=== PATIENT | female | born 1940 | race Caucasian/White ===

== ENCOUNTER → 2017-05-20 | Outpatient (CLI) | payer MEDICARE, OTHER | LOC: EDBD 14:31 → COL.LAB 14:31 | DX: Z01.89 Encounter for other specified special examinations (principal) ==

== ENCOUNTER → 2017-05-22 | Outpatient (CLI) | payer MEDICARE, OTHER ==
[2017-05-22 15:18] LABS: BASO % 0.6 % (0.0-2.0); EOS # 0.2 (0.0-0.7); EOS % 3.4 % (0-4.0); GRAN % 64.2 % (42.2-75.2); HEMATOCRIT 44.5 % (37.0-47.0); HEMOGLOBIN 14.7 g/dl (12.5-16.0); LYMPH # 1.6 (1.2-3.4); MEAN CELL VOLUME 91 fl (80.0-100.0); MEAN CORPUSCULAR HEMOGLOBIN 30 pg (27.0-31.0); MEAN CORPUSCULAR HGB CONC 33 g/dl (33.0-37.0); MEAN PLATELET VOLUME 10.5 fl (7.4-10.4); MONO # 0.4 (0.1-0.6); MONO % 6.6 % (1.7-9.3); PLATELET COUNT 235 K/mm3 (130-400); RED BLOOD COUNT 4.89 M/mm3 (4.10-5.30); REDCELL DISTRIBUTION WIDTH-CV 11.9 % (11.5-14.5); WHITE BLOOD COUNT 6.2 K/mm3 (4.8-10.8)
[2017-05-22 15:32] LABS: ALBUMIN 4.3 gm/dL (3.5-5.0); BILIRUBIN,TOTAL 0.9 mg/dL (0.0-1.0); CALCIUM 9.2 mg/dL (8.4-10.2); CREATININE, serum 0.98 mg/dL (0.52-1.25); POTASSIUM 3.9 mmol/L (3.4-5.0); TOTAL PROTEIN 7.4 gm/dL (6.4-8.2)
[2017-05-22 16:02] LABS: THYROID STIMULATING HORMONE 1.9 uIU/mL (0.465-4.680)
== END ==
LOC: COL.LAB 10:26
PROVIDERS: Family Medicine
DX: I10 Essential (primary) hypertension (principal)

== ENCOUNTER → 2017-09-16 | Outpatient (CLI) | payer MEDICARE, OTHER ==
[2017-09-16 16:07] LABS: ALBUMIN 4.4 gm/dL (3.5-5.0); BILIRUBIN,TOTAL 0.8 mg/dL (0.0-1.0); CALCIUM 9.5 mg/dL (8.4-10.2); CREATININE, serum 1.13 mg/dL (0.52-1.25); POTASSIUM 3.7 mmol/L (3.4-5.0); TOTAL PROTEIN 7.2 gm/dL (6.4-8.2)
== END ==
LOC: COL.LAB 14:45
PROVIDERS: Family Medicine
DX: I10 Essential (primary) hypertension (principal); R74.0 Nonspecific elevation of levels of transaminase and lactic acid dehydrogenase [LDH]

== ENCOUNTER → 2017-12-11 | Outpatient (CLI) | payer MEDICARE ==
[2017-12-11 11:33] LABS: ALBUMIN 4.1 gm/dL (3.5-5.0); BILIRUBIN,TOTAL 0.9 mg/dL (0.0-1.0); CHOLESTEROL RISK RATIO 2.8; CREATININE, serum 1.07 mg/dL (0.52-1.25); POTASSIUM 3.9 mmol/L (3.4-5.0); TOTAL PROTEIN 7.6 gm/dL (6.4-8.2)
== END ==
LOC: COL.LAB 10:52
PROVIDERS: Family Medicine
DX: E78.5 Hyperlipidemia, unspecified (principal); R74.0 Nonspecific elevation of levels of transaminase and lactic acid dehydrogenase [LDH]

== ENCOUNTER 2019-02-27 20:49 | Emergency (ER) | payer MEDICARE ==
[~2019-02-27] VITALS: Ht 160 cm; Wt 79.5 kg
[2019-02-27 20:54] VITALS: TEMP 97.3
[2019-02-27] MEDS ORDERED: HCTZ 25MG TAB25 MG PO (21:40)
[2019-02-27] MEDS ORDERED: LIPITOR 10MG10 MG PO (21:40)
[2019-02-27] MEDS ORDERED: FLONASE NASAL S16 GM NS (21:41)
[2019-02-27] MEDS ORDERED: ZYRTEC 10MG10 MG PO (21:41)
[2019-02-27] MEDS ORDERED: DOXYCYCLINE HY100 MG PO (21:45)
[2019-02-27 22:03] VITALS: BP 149/73; PULSE 60
== END 2019-02-27 22:03 | disposition home or self-care (01) ==
LOC: COL.ER 20:49
DX: S80.812A Abrasion, left lower leg, initial encounter (principal); L03.116 Cellulitis of left lower limb; I10 Essential (primary) hypertension; E78.5 Hyperlipidemia, unspecified; Z88.2 Allergy status to sulfonamides; Z88.1 Allergy status to other antibiotic agents

== ENCOUNTER 2021-10-08 12:28 | Emergency (ER) | payer MEDICARE, OTHER ==
[~2021-10-08] VITALS: Ht 162.6 cm; Wt 84.1 kg
[~2021-10-08 12:28] MED LIST: DOXYCYCLINE HY100 MG PO; FLONASE NASAL S16 GM NS; HCTZ 25MG TAB25 MG PO; LIPITOR 10MG10 MG PO; ZYRTEC 10MG10 MG PO
[2021-10-08 12:29] VITALS: TEMP 98.4
[2021-10-08] MEDS ORDERED: NORCO 325 MG-51 TAB PO (14:30)
[2021-10-08 14:52] VITALS: BP 143/69; PULSE 66
== END 2021-10-08 15:16 | disposition home or self-care (01) ==
LOC: COL.ER 12:28
DX: M25.552 Pain in left hip (principal); I10 Essential (primary) hypertension; E78.5 Hyperlipidemia, unspecified

== ENCOUNTER 2022-10-31 07:40 | Inpatient (IN) | payer MEDICARE, OTHER ==
[~2022-10-31] VITALS: Ht 165.1 cm; Wt 80.4 kg
[~2022-10-31 07:40] MED LIST changes: +NORCO 325 MG-51 TAB PO
[2022-10-31 08:22] LABS: HEMATOCRIT 42.7 % (37.0-47.0); HEMOGLOBIN 14.2 g/dl (12.5-16.0); MEAN CELL VOLUME 92 fl (80.0-100.0); MEAN CORPUSCULAR HEMOGLOBIN 31 pg (27-31); MEAN CORPUSCULAR HGB CONC 33 g/dl (33.0-37.0); PLATELET COUNT 193 K/mm3 (130-400); RED BLOOD COUNT 4.63 M/mm3 (4.10-5.30); REDCELL DISTRIBUTION WIDTH-CV 12.3 % (11.5-14.5)
[2022-10-31 08:30] LABS: COLLECTION METHOD CLEAN CATCH
[2022-10-31 08:36] LABS: ALBUMIN 3.7 gm/dL (3.4-4.8); BILIRUBIN,TOTAL 1.2 mg/dL (0.2-1.2); CREATININE, serum 1.26 mg/dL (0.57-1.11); POTASSIUM 3.5 mmol/L (3.5-4.5); TOTAL PROTEIN 7.4 gm/dL (6.2-8.1)
[2022-10-31 08:41] LABS: TROPONIN-I 0.013 ng/mL (0.00-0.033)
[2022-10-31 08:41] LABS: GRANULAR CAST >12 /lpf (0); MUCOUS Present (NOT PRESENT); SQUAMOUS EPITHELIAL 0-2 /hpf (0-10); URINE BACTERIA Rare /hpf (NONE SEEN)
[2022-10-31 08:46] LABS: PH 5.5 (5.0-8.5); URINE APPEARANCE Hazy (CLEAR/HAZY); URINE BLOOD 2+ (NEGATIVE); URINE COLOR Yellow (YELLOW); URINE GLUCOSE Negative (NEGATIVE); URINE KETONE Negative (NEGATIVE); URINE NITRATE Negative (NEGATIVE); URINE PROTEIN(semi-quant) 3+ (NEGATIVE)
[2022-10-31 09:01] LABS: BAND 28 % (0-10); BASOPHIL 1 % (0-2); LYMPHOCYTE 4 % (20.0-51.0); NEUTROPHILS 57 % (42.0-75.2); PLATELET ESTIMATE NORMAL (NORMAL)
[2022-10-31 09:33] VITALS: BP 134/63; PULSE 88; TEMP 101.2
[2022-10-31] MEDS ORDERED: PAXLOVID 150-11 EACH PO (10:46)
[2022-10-31] MEDS ORDERED: NEURONTIN300 MG/CAP PO (10:46)
[2022-10-31] MEDS ORDERED: VASOTEC 10M10 MG/TAB PO (10:47)
[2022-10-31] MEDS ORDERED: K-TAB10 PO (10:47)
[2022-10-31] MEDS ORDERED: SINGULAIR 110 MG/TAB PO (10:48)
[2022-10-31] MEDS ORDERED: FOSAMAX 70MG TA70 MG PO (10:49)
[2022-10-31] MEDS ORDERED: TYLENOL 500MG500 MG PO (10:50)
[2022-10-31 11:10] VITALS: BP 132/55; PULSE 88; TEMP 100.5
[2022-10-31 15:14] VITALS: BP 120/50; PULSE 80; TEMP 98.3
--- NOTE | 2022-10-31 16:51 | NUR ---
Nursing staff notified this nurse that the patient took out IV and O2 and set off the bed alarm and was in the bathroom. Nursing staff assisted with getting the patient back into the bed. New IV site started and OM placed back on the patient. Patient reoriented to location, room and call light. Call light within reach. Bed alarm on. Fall precautions in place.
--- NOTE | 2022-10-31 17:00 | NUR ---
Nursing staff requesting telesitter, telesitter informed the nursing staff that they are short staffed and cannot take any new patients and that it is unsafe for a person to monitor 24 patients. tunnel heading supervisor notifed and Sara Director notified.
[2022-10-31 20:57] VITALS: BP 136/67; PULSE 81; TEMP 98.7
[2022-10-31 23:06] VITALS: BP 144/82; PULSE 75; TEMP 98.3
[2022-11-01 03:02] VITALS: BP 147/59; PULSE 78; TEMP 98.7
[2022-11-01 06:15] VITALS: BP 134/67; PULSE 135; TEMP 99
[2022-11-01 07:09] LABS: CALCIUM 8.8 mg/dL (8.4-10.2); CREATININE, serum 1.21 mg/dL (0.57-1.11); POTASSIUM 3.7 mmol/L (3.5-4.5)
[2022-11-01 07:15] LABS: BASO % 0.3 % (0.0-2.0); GRAN # 7.9 K/mm3 (1.4-6.5); GRAN % 84.8 % (42.2-75.2); HEMATOCRIT 39.6 % (37.0-47.0); HEMOGLOBIN 13.5 g/dl (12.5-16.0); LYMPH % 10.2 % (20.0-51.0); MEAN CELL VOLUME 91 fl (80.0-100.0); MEAN CORPUSCULAR HEMOGLOBIN 31 pg (27-31); MEAN CORPUSCULAR HGB CONC 34 g/dl (33.0-37.0); MEAN PLATELET VOLUME 10.7 fl (7.4-10.4); MONO # 0.4 K/mm3 (0.1-0.6); MONO % 4.3 % (1.7-9.3); PLATELET COUNT 189 K/mm3 (130-400); RED BLOOD COUNT 4.37 M/mm3 (4.10-5.30); REDCELL DISTRIBUTION WIDTH-CV 12.2 % (11.5-14.5)
--- NOTE | 2022-11-01 08:00 | NUR ---
Patient sitting up in bed, A&Ox3 with intermittent confusion. VSS 5L OM O2, no reported SOB. IV CDI. fluids infusing. Suction and yonker at the bedside. Covid precautions in place. Telesitter in the room. Call light within reach. Bed alarm on
[2022-11-01 10:53] LABS: MAGNESIUM 2.2 mg/dL (1.6-2.6)
[2022-11-01 11:14] LABS: TSH w REFLEX 0.781 uIU/mL (0.350-4.940)
[2022-11-01 12:00] VITALS: BP 107/40; PULSE 77; TEMP 99.5
--- NOTE | 2022-11-01 13:42 | NUR ---
NADYA called daughter Eliza at [phone] to complete intake. Daughter states that patient lives with her in [facility]. Patient does not utilize DME, is independent with ADL's, and does not utilize HH services at this time. PCP is Dr. Hill, and pharmacy is [facility]. Daughter states that she has been appointed as DPOA/HC. Plan is to return back to home in [place] upon DC. NADYA will continue to follow. DC plan: home with daughter
[2022-11-01 16:00] VITALS: BP 142/74; PULSE 78; TEMP 98.5
[2022-11-01 19:55] VITALS: BP 124/60; PULSE 72; TEMP 98.6
[2022-11-02 00:20] VITALS: BP 124/65; PULSE 58; TEMP 98.6
--- NOTE | 2022-11-02 02:00 | NUR ---
Patient care, medication administration and nursing documentation occurred during a Daylight Savings Time Change. 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 PT STATED HER IV WAS HURTING. NEW IV STARTED TO THE RIGHT FOREARM. FALL PRECAUTIONS IN PLACE. BED ALARM ON. CALL LIGHT WITHIN REACH.
[2022-11-02 03:47] VITALS: BP 117/62; PULSE 60; TEMP 98.8
--- NOTE | 2022-11-02 06:23 | NUR ---
Patient care, medication administration and nursing documentation occurred during a Daylight Savings Time Change.
[2022-11-02 06:50] LABS: BASO % 0.2 % (0.0-2.0); HEMATOCRIT 37.8 % (37.0-47.0); HEMOGLOBIN 12.4 g/dl (12.5-16.0); LYMPH # 1.1 K/mm3 (1.2-3.4); LYMPH % 10.1 % (20.0-51.0); MEAN CELL VOLUME 93 fl (80.0-100.0); MEAN CORPUSCULAR HEMOGLOBIN 31 pg (27-31); MEAN CORPUSCULAR HGB CONC 33 g/dl (33.0-37.0); MEAN PLATELET VOLUME 10.8 fl (7.4-10.4); MONO # 0.5 K/mm3 (0.1-0.6); MONO % 4.2 % (1.7-9.3); PLATELET COUNT 226 K/mm3 (130-400); RED BLOOD COUNT 4.07 M/mm3 (4.10-5.30); REDCELL DISTRIBUTION WIDTH-CV 12.4 % (11.5-14.5)
[2022-11-02 07:02] LABS: CALCIUM 8.3 mg/dL (8.4-10.2); CREATININE, serum 1.16 mg/dL (0.57-1.11); POTASSIUM 3.8 mmol/L (3.5-4.5)
[2022-11-02 07:27] VITALS: BP 125/87; PULSE 63; TEMP 98
--- NOTE | 2022-11-02 09:00 | NUR ---
Pt awake and laying in bed. Morning medications administered per eMAR. Shift assessment completed. VSS. Pt remains on 2L per oxymask. Telemetry remains on. IV fluids infusing in R forearm, patent no edema or redness. INT in L forearm patent, no edema or redness. Tele sitter remains in room. No further request at this time. Call light within reach. Bed alarm on.
--- NOTE | 2022-11-02 11:16 | NUR ---
Athletics Teacher rounds: Patient accepted visit. Patient goes by Mily. 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 Patient used visit with Athletics Teacher for life review. Athletics Teacher prayed for Patient. Athletics Teacher left a New Testament with Irma in room.
[2022-11-02 12:20] VITALS: BP 136/66; PULSE 57; TEMP 97.6
[2022-11-02 15:54] VITALS: BP 140/75; PULSE 57; TEMP 97.7
[2022-11-02 19:43] VITALS: BP 143/65; PULSE 64; TEMP 98.7
[2022-11-03] VITALS (7 sets, daily range): BP systolic 114–175; BP diastolic 53–90; PULSE 51–63; TEMP 98–98.6
[2022-11-03] LABS: ARTERIAL BLD GAS O2 SATURATION 97.9 % (92-100); ARTERIAL BLD GAS TCO2 CT 23.3; ARTERIAL BLOOD GAS BASE EXCESS -2.6 (-2-2); ARTERIAL BLOOD GAS HCO3 22.1 meq/L (22-26); ARTERIAL BLOOD GAS PCO2 38.3 mmHg (35-45); ARTERIAL BLOOD GAS PO2 110.9 mmHg (80-100); ARTERIAL BLOOD GAS pH 7.38 (7.35-7.45)
--- NOTE | 2022-11-03 05:00 | NUR ---
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 PT HAD A PRETTY ROUGH NIGHT. RECEIVED A CALL FROM THE TELE-SITTER THAT PT REMOVED HER O2. I WENT TO PT'S ROOM TO REPLACE HER O2. PT REFUSED TO PUT IT ON. I TOLD PT THAT I WOULD CHECK HER O2 LEVELS AND IF ABOVE 90%, WE COULD LEAVE HER O2 OFF FOR A WHILE. PT'S O2 @93% ON ROOM AIR. PT HAPPEN TO SEE MY SCISSORS AND STARTED OBSESSING OVER THEM. "GIVE ME THOSE SCISSOR, I WANT THOSE SCISSOR!" I ASKED PT WHY SHE NEEDED SCISSOR? PT STATED, "SO I CAN CUT YOUR THROAT!" PT BECAME MORE AND MORE COMBATIVE, GRABBING AT THE SCISSORS, DIGGING HER NAILS INTO MY HANDS, ETC. STAFF CALLED TO BEDSIDE FOR HELP. SOFT MITS PLACED BECAUSE PT WAS HITTING, DIGGING HER NAILS INTO THE OTHER STAFF AND KICKING. HOSPITALIST CALLED AND CAME TO BEDSIDE. ATIVAN ORDERED AND GIVEN, TWICE. SEROQUEL ORDERED BUT PT REFUSED. PT FINALLY CALMED DOWN, BUT HAVE A COUPLE MORE MOMENTS OF COMBATIVENESS DURING THE SHIFT; FALL PRECAUTIONS IN PLACE. BED ALARM ON. CALL LIGHT WITHIN REACH.
[2022-11-03 07:03] LABS: CALCIUM 8.1 mg/dL (8.4-10.2); CREATININE, serum 1.03 mg/dL (0.57-1.11); POTASSIUM 3.8 mmol/L (3.5-4.5)
[2022-11-03 07:10] LABS: BASO % 0.1 % (0.0-2.0); GRAN # 8.7 K/mm3 (1.4-6.5); GRAN % 82.8 % (42.2-75.2); HEMATOCRIT 37.2 % (37.0-47.0); HEMOGLOBIN 12.5 g/dl (12.5-16.0); LYMPH % 9.4 % (20.0-51.0); MEAN CELL VOLUME 91 fl (80.0-100.0); MEAN CORPUSCULAR HEMOGLOBIN 31 pg (27-31); MEAN CORPUSCULAR HGB CONC 34 g/dl (33.0-37.0); MEAN PLATELET VOLUME 10.8 fl (7.4-10.4); MONO # 0.7 K/mm3 (0.1-0.6); MONO % 6.6 % (1.7-9.3); PLATELET COUNT 210 K/mm3 (130-400); RED BLOOD COUNT 4.07 M/mm3 (4.10-5.30); REDCELL DISTRIBUTION WIDTH-CV 12.1 % (11.5-14.5)
--- NOTE | 2022-11-03 08:00 | NUR ---
Patient laying in bed resting. Easily awakened with verbal commad. Alert, but confused and refusing to answer any questions. VSS. IV infiltrated. Denies pain and discomfort. Covid precautions in place. Telesitter in the room. Call light within reach. Bed alarm on
--- NOTE | 2022-11-03 23:35 | NUR ---
THIS NURSE WENT INTO PATIENT ROOM TO ASSESS AND GIVE NIGHT TIME MEDICATIONS. THIS NURSE ASKED PATIENT IF SHE WOULD LIKE TO TAKE HER MEDICATIONS. PATIENT DID NOT ANSWER BUT WAS GROANING. THIS NURSE ASKED PATIENT TO TAKE MEDICATIONS AND PATIENT STATED NO. THIS NURSE STATED THAT BATTERIES ON HEART MONITOR NEEDED TO BE CHANGED AND PATIENT STATED NO. WHEN ASKED PATIENT WHY SHE DID NOT WANT TO CHANGE BATTERIES OR TAKE MEDS PATIENT STATED "BECAUSE I WANT TO SLEEP." PATIENT REFUSED TO LET NURSE PERFORM ASSESSMENT. CALL LIGHT WITHIN REACH.
[2022-11-04 07:17] VITALS: BP 183/75; PULSE 63; TEMP 98.1
--- NOTE | 2022-11-04 08:00 | NUR ---
Patient laying in bed, Alert, but confused. VSS. IV CDI. Denies pain and discomfort. Covid precautions in place. Telesitter in the room. Call light within reach. Bed alarm on
[2022-11-04 11:32] VITALS: BP 174/73; PULSE 62; TEMP 97.9
[2022-11-04] MEDS ORDERED: OMNICEF 300MG300 MG PO (12:29)
[2022-11-04] MEDS ORDERED: DOXYCYCLINE 10100 MG PO (12:29)
[2022-11-04] MEDS ORDERED: ELIQUIS 5MG PO (12:30)
[2022-11-04] MEDS ORDERED: LOPRESSOR 225 MG/TAB PO (12:31)
--- NOTE | 2022-11-04 12:35 | NUR ---
Discharge paperwork reviewed with the patient and daughter at the bedside. Patient verbalized an understanding to follow doctors orders. IV removed, tip intact. Gauze and coban applied. Patient transfered by wheelchair to awaiting vehicle. No further needs expressed.
--- NOTE | 2022-11-04 13:54 | NUR ---
Interlocking Tower Operator was notified that patient is in need of a front wheeled walker. NADYA faxed order and referral for FWW to [facility]. [facility] advised they could deliver the walker up to the room today. NADYA contacted daughter, Eliza who advised she picked up patient and they are already on their way home. [place] advised it was unsure if patient actually needed the walker. NADYA advised one was ordered and [facility] could likely deliver it to the home. Eliza is agreeable to this. NADYA contacted [facility] to provide update. [facility] advised they would deliver to the home as soon as they were able.
[2022-11-04] MEDS ORDERED: DECADRON6 MG PO (15:57)
== END 2022-11-04 12:36 | disposition home or self-care (01) | DRG 177 ==
LOC: COL.ER 07:40 → MEDICAL 08:43
PROVIDERS: Emergency Medicine; Nurse Practitioner; Nurse Practitioner Family; ADMIT Student in an Organized Health Care Education/Training Program
PROC: XW033E5 Introduction of Remdesivir Anti-infective into Peripheral Vein, Percutaneous Approach, New Technology Group 5 (ICD-10-PCS; principal; 2022-10-31)
DX: U07.1 COVID-19 (principal); J96.01 Acute respiratory failure with hypoxia; N17.9 Acute kidney failure, unspecified; F05 Delirium due to known physiological condition; J45.21 Mild intermittent asthma with (acute) exacerbation; G93.40 Encephalopathy, unspecified; I48.92 Unspecified atrial flutter; I48.0 Paroxysmal atrial fibrillation; I10 Essential (primary) hypertension; E78.5 Hyperlipidemia, unspecified; Z88.2 Allergy status to sulfonamides; Z88.1 Allergy status to other antibiotic agents; Z90.89 Acquired absence of other organs; Z23 Encounter for immunization
CPT/HCPCS: J0248; J0696; J1100; J1650; J2060; J7050; J7120; J8540

== ENCOUNTER 2023-06-25 18:43 | Emergency (ER) | payer MEDICARE ==
[~2023-06-25] VITALS: Ht 162.6 cm; Wt 88.6 kg
[~2023-06-25 18:43] MED LIST changes: +DECADRON6 MG PO; +DOXYCYCLINE 10100 MG PO; +ELIQUIS 5MG PO; +FOSAMAX 70MG TA70 MG PO; +K-TAB10 PO; +LOPRESSOR 225 MG/TAB PO; +NEURONTIN300 MG/CAP PO; +OMNICEF 300MG300 MG PO; +PAXLOVID 150-11 EACH PO; +SINGULAIR 110 MG/TAB PO; +TYLENOL 500MG500 MG PO; +VASOTEC 10M10 MG/TAB PO
[2023-06-25 18:54] VITALS: TEMP 97.4
[2023-06-25] MEDS ORDERED: AMOXICILLIN 8751 TAB PO (19:36)
[2023-06-25 19:49] VITALS: BP 114/63; PULSE 57
== END 2023-06-25 19:49 | disposition home or self-care (01) ==
LOC: COL.ER 18:43
DX: S61.412A Laceration without foreign body of left hand, initial encounter (principal); X58.XXXA Exposure to other specified factors, initial encounter